=== PATIENT | male | born 1965 | race Caucasian/White ===

== ENCOUNTER 2016-07-20 08:43 | Day surgery (SDC) | payer OTHER ==
[~2016-07-20] VITALS: Ht 188 cm; Wt 77.3 kg
[2016-07-20 09:23] VITALS: BP 138/90; PULSE 68; RESP 15; O2SAT 100
[2016-07-20] MEDS ORDERED: 0.9% Sodium Chloride 1,000 ML IV PRN (10:03)
[2016-07-20] MEDS ORDERED: fentaNYL-PF 50 mCg/mL 2 mL Inj IVPUSH PRN (10:05)
[2016-07-20] MEDS ORDERED: Sodium Chloride LOK Flush 10 mL Syringe IV PRN (10:05)
--- NOTE | 2016-07-20 11:08 | PCM.ENDCOL ---
Colonoscopy Date of Service: Jul 20, 2016 Physician Travon Bhardwaj MD Pre Procedure Diagnosis: screening colon cancer bright red blood per rectum Post Procedure Dx & Findings: Polyp hemorrhoids Procedure Colonoscopy Prep adequate Withdrawal 10 minutes PROCEDURE IN DETAIL: After unremarkable rectal examination Olympus video colonoscope was inserted into patient's anal canal and was advanced to the cecum. Landmarks were identified including the ileocecal valve and appendiceal orifice. Scope was withdrawn systematically. In the transverse colon there was a 3 mm polyp which was removed completely using cold snare. In the transverse colon: There was a 1 mm polyp which was removed completely using cold forceps. In the rectum retroflexion was done which showed hemorrhoids. Anal canal was inspected carefully on the way out and hemorrhoids noted. The mucosa of the cecum, ascending, transverse, descending, sigmoid, rectal mucosa lined with whitish, pink, smooth, glistening, normal-appearing mucosa, normal fine branching, underlying vascularity, normal haustra. The patient tolerated procedure and was transported to observation area. Impression Polyp 2 status post complete removal Hemorrhoids Recommendation Repeat colonoscopy 5 years Presedation Assessment Risks and Benefits Informed consent was obtained from the patient after all risks and benefits including but not limited to drug reaction, infection, pain, bleeding, perforation, as well as alternatives were discussed. Patient monitoring Continuous pulse oximetry, cardiac monitoring, blood pressure monitoring, IV access, and oxygen at 2L per nasal cannula. Periprocedural Fentanyl: Fentanyl 100mcg Incrementally Midazolam: Midazolam 5mg Incrementally Complications There were no periprocedural complications identified. Post Procedure Plan Post Procedure Recommendations 1. Restrict activities today. 2. Resume normal activities in the morning. 3. Resume medications. 4. Patient informed of normal post procedure side effects as bloating, drowsiness, blood streaking in the stool. 5. average risk CRCS. If colon polyps come back as: -Hyperplastic- can repeat colonoscopy in 10 years -Tubular adenoma- repeat colonoscopy in 5 years -Tubulovillous/villous adenoma- repeat colonoscopy in 3 years -If any dysplasia- return to clinic as soon as possible 6. Please don't hesitate to call me with any questions. Travon Bhardwaj MD Jul 20, 2016 11:08
[2016-07-20 11:10] VITALS: BP 110/64; PULSE 68; RESP 16; O2SAT 97
[2016-07-20 11:20] VITALS: BP 106/63; PULSE 70; RESP 14; O2SAT 98
[2016-07-20 11:27] VITALS: BP 127/84; PULSE 70; RESP 16; O2SAT 98
--- NOTE | 2016-07-21 14:29 | PATH ---
SURGICAL PATHOLOGY Attending Physician:Travon Bhardwaj M.D. CASE STATUS: Signed Out PATIENT NAME: MAHESH DUMONT PID: [id number] : 1965 DATE COLLECTED:07/20/2016 16:20 SPECIMEN: Colon, Biopsy CLINICAL HISTORY: POLYPS 1).TRANSVERSE COLON POLYPS X2 FINAL DIAGNOSIS: 1.TRANSVERSE COLON POLYPS: SESSILE SERRATED ADENOMAS. ICD10 CODE D12.3 GROSS DESCRIPTION: Received in formalin, labeled with the patient' s name and "transverse colon polyp", are four fragments of aguilar, soft tissue ranging in size from 0.1 x 0.1 x 0.1 cm to 0.2 x 0.1 x 0.1 cm. All fragments are totally submitted in one cassette. ([id number]) MICRO DESCRIPTION: See diagnosis. ICD-9 CODES: CPT CODES: 1: 54705 Electronically Signed Out Ann Marie Schwab MD [facility] Pathology [facility] [address], [place] [address] Technical component performed at [facility], [facility] [address], [place], [address]
== END 2016-07-20 23:59 | disposition home or self-care (01) ==
LOC: END 08:43
PROVIDERS: ATTEND Internal Medicine
DX: D12.3 Benign neoplasm of transverse colon (principal); K64.9 Unspecified hemorrhoids
CPT/HCPCS: 45385; 99153; G0500; J2250; J3010; J7030